=== PATIENT | female | born 1960 | race Caucasian/White ===

== ENCOUNTER 2016-05-05 17:26 | Emergency (ER) | payer MEDICAID ==
[2012-02-18 15:45] VITALS: BMI 23.4
== END 2016-05-05 18:58 | disposition home or self-care (01) ==
LOC: D.ER 17:26
DX: S20.219A Contusion of unspecified front wall of thorax, initial encounter (principal); W01.0XXA Fall on same level from slipping, tripping and stumbling without subsequent striking against object, initial encounter; Y93.89 Activity, other specified; Y92.89 Other specified places as the place of occurrence of the external cause; F17.200 Nicotine dependence, unspecified, uncomplicated

== ENCOUNTER 2016-07-28 11:30 | Observation (INO) | payer MEDICAID ==
[~2016-07-28] VITALS: Ht 170.2 cm; Wt 56.8 kg
[2016-07-28 13:22] LABS: UDS - AMPHET NEGATIVE QUAL (NEGATIVE); UDS - BARB NEGATIVE QUAL (NEGATIVE); UDS - BENZO POSITIVE QUAL (NEGATIVE); UDS - COCAINE NEGATIVE QUAL (NEGATIVE); UDS - METH NEGATIVE QUAL (NEGATIVE); UDS - OPIATE NEGATIVE QUAL (NEGATIVE); UDS - PCP NEGATIVE QUAL (NEGATIVE); UDS - THC NEGATIVE QUAL (NEGATIVE)
[2016-07-28 13:30] LABS: BASOPHILS 0.2 % (0-2); EOSINOPHILS 2.7 % (0-7); HEMOGLOBIN 13.7 g/dL (12-16); IMMATURE GRANULOCYTES 0.3 % (0-5); LYMPHOCYTES 43.2 % (15-50); MCH 31.4 pg (26.0-34.0); MCHC 33.4 g/dL (31.0-37.0); MCV 93.8 fL (80.0-100.0); MEAN PLATELET VOLUME 10.4 fL (7.4-10.4); NEUTROPHILS 47.6 % (40-80); RBC 4.37 10x6/uL (4.00-5.40); RDW 14.3 % (11.5-14.5)
[2016-07-28 13:45] LABS: PLATELET COUNT 306 10x3/uL (130-400)
[2016-07-28 13:48] LABS: ALBUMIN 3.3 g/dL (3.4-5.0); ALKALINE PHOSPHATASE 71 U/L (46-116); ALT (SGPT) 40 U/L (10-68); CALC OSMOLALITY 287 mosm/kg (275-300); CALCIUM 8.7 mg/dL (8.5-10.1); CARBON DIOXIDE 27.5 mmol/L (21.0-32.0); CHLORIDE - SERUM 107 mmol/L (98-107); CREATININE - SERUM 0.8 mg/dL (0.6-1.3); GLUCOSE 80 mg/dL (74-106); POTASSIUM - SERUM 3.6 mmol/L (3.5-5.1); PROTEIN - SERUM 7.4 g/dL (6.4-8.2); SODIUM 146 mmol/L (136-145); UREA NITROGEN 7 mg/dL (7-18); eGFR NON AFRICAN AMERICAN 78 mL/min (90-120)
[2016-07-28 13:53] LABS: HCG SERUM NEGATIVE (NEGATIVE)
[2016-07-28] MEDS ORDERED: AMITRIPTYLINE H50 MG PO (22:20)
[2016-07-28] MEDS ORDERED: ULTRAM50 MG PO (22:20)
[2016-07-28 22:26] VITALS: BP 120/70; Ht 170.2 cm; Wt 56.8 kg
--- NOTE | 2016-07-28 22:32 | NUR ---
ICU ASSESSMENT COMPLETED. PT CALM AND COOPERATIVE. STATES "I DON'T REMEMBER TAKING THE PILLS". REPORTS RECENT RELAPSE FROM SOBRIETY AND WAS DRINKING AND DOESN'T REMEMBER WHAT HAPPENED. DENIES BEING DEPRESSED OR SUICIDAL.
--- NOTE | 2016-07-29 12:57 | NUR ---
A&O X3. DENIES SUICIDAL IDEATION AT THIS TIME. ON RA SATTING 100%. CM=NS RATE OF 88. NO ECTOPY SEEN. LUNGS CTA. BS+ X4 QUADS. PPP. CAUSEY. FOLLOWS COMMANDS. STATES"I HAVE TO GET STARTED BACK WITH MY AA MEETINGS AND COMMUNITY COUNSELING TOMORROW. I WILL JUST HAVE TO WALK IN." ENCOURAGED THIS. VSS. BP 117/81. SHE HAS NO SHOES. HOSPITAL SOCKS PROVIDED. STATES" WILL PICK ME UP". ENCOURAGEMENT TO GET SOME HELP FROM AA AND COMMUNITY COUNSELING PROVIDED. DENIES PAIN AND NEEDS. REMOVED RIGHT FOREARM PIV. READY TO DISCHARGE.
--- NOTE | 2016-07-29 13:07 | NUR ---
DC'D RIGHT FOREARM PIV WITH TIP INTACT.
== END 2016-07-29 12:57 | disposition home or self-care (01) ==
LOC: OBSVTIME → D.ER 11:30 → D.ICU 13:12 → D.ER 23:58 → D.ICU 23:58 → OBSVTIME 23:59 → D.ICU 07-29 12:34 → OBSVTIME 07-29 12:34 → D.ICU 07-29 12:34
PROVIDERS: Family Medicine; ADMIT Family Medicine
DX: T50.902A Poisoning by unspecified drugs, medicaments and biological substances, intentional self-harm, initial encounter (principal); F10.21 Alcohol dependence, in remission; I10 Essential (primary) hypertension; M19.90 Unspecified osteoarthritis, unspecified site; G47.00 Insomnia, unspecified; E86.0 Dehydration; F41.9 Anxiety disorder, unspecified; Z91.14 Patient's other noncompliance with medication regimen; Z72.0 Tobacco use

== ENCOUNTER 2016-11-06 03:08 | Emergency (ER) | payer MEDICAID ==
[2016-07-28 22:26] VITALS: BMI 19.6
[~2016-11-06 03:08] MED LIST: AMITRIPTYLINE H50 MG PO; ULTRAM50 MG PO
== END 2016-11-06 04:40 | disposition home or self-care (01) ==
LOC: D.ER 03:08
DX: S50.02XA Contusion of left elbow, initial encounter (principal); W19.XXXA Unspecified fall, initial encounter; Y93.89 Activity, other specified; Y92.89 Other specified places as the place of occurrence of the external cause; S70.02XA Contusion of left hip, initial encounter

== ENCOUNTER 2016-11-09 09:57 | Emergency (ER) | payer MEDICAID ==
[2016-07-28 22:26] VITALS: BMI 19.6
== END 2016-11-09 11:20 | disposition home or self-care (01) ==
LOC: D.ER 09:57
DX: S50.02XA Contusion of left elbow, initial encounter (principal); X58.XXXA Exposure to other specified factors, initial encounter; Y93.89 Activity, other specified; Y92.89 Other specified places as the place of occurrence of the external cause; M70.22 Olecranon bursitis, left elbow; R20.2 Paresthesia of skin; F17.200 Nicotine dependence, unspecified, uncomplicated